=== PATIENT | female | born 1990 | race Caucasian/White ===

== ENCOUNTER 2020-06-02 19:02 | Emergency (ER) | payer MEDICAID ==
[~2020-06-02] VITALS: Ht 160 cm; Wt 44.0 kg
[~2020-06-02 19:02] MED LIST: AMOXICILLIN500 MG OR; AMOXICILLIN500 MG PO; CLEOCIN150 M1 PO; FIORICET PO; LICE TREATMT1 % EX; NAPROSYN500 MG PO; NO MEDS; PERIDEX0.12 % MT; TRIAMIN26 OR; ULTRAM50 M1 PO
[2020-06-02 21:00] VITALS: BP 108/60
== END 2020-06-02 21:00 | disposition home or self-care (01) ==
LOC: ED 19:02
DX: G43.909 Migraine, unspecified, not intractable, without status migrainosus (principal)

== ENCOUNTER 2020-08-23 19:25 | Emergency (ER) | payer MEDICAID ==
[~2020-08-23] VITALS: Ht 160 cm; Wt 45.0 kg
[2020-08-23 21:40] LABS: URINE BILIRUBIN - DIPSTICK NEGATIVE (NEGATIVE); URINE BLOOD DIPSTICK NEGATIVE (NEGATIVE); URINE COLOR YELLOW; URINE GLUCOSE - DIPSTICK NEGATIVE (NEGATIVE); URINE KETONE NEGATIVE (NEGATIVE); URINE LEUK ESTERASE NEGATIVE (NEGATIVE); URINE NITRITE - DIPSTICK NEGATIVE (Negative); URINE PH 7.5 (4.5-8.0); URINE PROTEIN - DIPSTICK NEGATIVE (NEG-TRACE); URINE SPECIFIC GRAVITY 1.015
[2020-08-23] MEDS ORDERED: FLEXERIL5 M1 PO (22:33)
[2020-08-23] MEDS ORDERED: IBUPROFEN600 MG PO (22:33)
[2020-08-23 22:55] VITALS: BP 120/57
== END 2020-08-23 22:55 | disposition home or self-care (01) ==
LOC: ED 19:25
DX: S39.012A Strain of muscle, fascia and tendon of lower back, initial encounter (principal); X50.0XXA Overexertion from strenuous movement or load, initial encounter; Y93.E9 Activity, other interior property and clothing maintenance

== ENCOUNTER 2022-07-09 02:12 | Emergency (ER) | payer MEDICAID ==
[~2022-07-09] VITALS: Ht 160 cm; Wt 50.0 kg
[~2022-07-09 02:12] MED LIST changes: +FLEXERIL5 M1 PO; +IBUPROFEN600 MG PO
[2022-07-09 02:23] VITALS: BP 112/69
[2022-07-09 02:49] LABS: URINE BILIRUBIN - DIPSTICK NEGATIVE (NEGATIVE); URINE BLOOD DIPSTICK LARGE (NEGATIVE); URINE COLOR PINK; URINE GLUCOSE - DIPSTICK NEGATIVE (NEGATIVE); URINE LEUK ESTERASE TRACE (NEGATIVE); URINE PROTEIN - DIPSTICK 100 mg/dL (NEG-TRACE); URINE UROBILINOGEN - DIPSTICK 0.2 E.U./dL (0.2)
[2022-07-09 02:50] LABS: URINE KETONE NEGATIVE (NEGATIVE); URINE NITRITE - DIPSTICK NEGATIVE (Negative)
[2022-07-09 02:53] LABS: URINE RBC >100 RBC/hpf (0-5)
[2022-07-09 02:54] LABS: URINE BACTERIA MODERATE hpf; URINE EPITHELIAL CELLS FEW EPI/hpf (0-FEW); URINE YEAST FEW hpf
[2022-07-09] MEDS ORDERED: ULTRAM50 MG PO (03:06)
[2022-07-09] MEDS ORDERED: KEFLEX500 MG PO (03:06)
[2022-07-09] MEDS ORDERED: PYRIDIUM200 MG PO (03:06)
[2022-07-09 03:09] VITALS: BP 112/69
== END 2022-07-09 03:14 | disposition home or self-care (01) ==
LOC: ED 02:12
PROVIDERS: Emergency Medicine
DX: N39.0 Urinary tract infection, site not specified (principal)

== ENCOUNTER 2024-04-14 14:17 | Emergency (ER) | payer SELFPAY ==
[2024-04-14] VITALS (8 sets, daily range): BP systolic 99–135; BP diastolic 59–81
[~2024-04-14] VITALS: Ht 160 cm; Wt 50.8 kg
[~2024-04-14 14:17] MED LIST changes: +KEFLEX500 MG PO; +PYRIDIUM200 MG PO; +ULTRAM50 MG PO
[2024-04-14] MEDS ORDERED: METOCLOPRAMIDE HCL 10 MG/2 ML SDV IV ONE (15:05)
[2024-04-14] MEDS ORDERED: SODIUM CHLORIDE 0.9% 1,000 ML IV ONE (15:05)
[2024-04-14] MEDS ORDERED: DiphenhydrAMINE HCL 50 MG/ML SDV IV ONE (15:05)
[2024-04-14] MEDS ORDERED: DEXAMETHASONE SOD. PHOSPHATE 10 MG/ML VIAL IV ONE (15:05)
[2024-04-14] MEDS ORDERED: KETOROLAC TROMETHAMINE 30 MG/ML SDV IV ONE (15:05)
[2024-04-14 15:13] LABS: BASO% 0.1 % (0-3); EOS% 0.3 % (0-8); HEMATOCRIT 41.7 % (37.0-47.0); HEMOGLOBIN 14.4 g/dl (12.0-16.0); IMMATURE GRANULOCYTES 0.1 % (0.0-5.0); LYMPH% 19.9 % (15-41); MEAN CELL VOLUME 90.8 fL CALC (80.0-100.0); MEAN CORPUSCULAR HGB 31.4 pG CALC (26.0-32.0); MEAN CORPUSCULAR HGB CONC 34.5 g/dL CAL (32.0-36.0); NEUT# 4.93 thou/uL (2.00-7.15); NEUT% 73.6 % (42-76); RED BLOOD COUNT 4.59 mill/uL (4.20-5.60); RED CELL DISTRI WIDTH 11.6 % (11.5-15.5)
[2024-04-14 15:25] LABS: ALBUMIN 4.7 g/dL (3.2-5.0); BILIRUBIN, TOTAL 0.6 mg/dL (0.02-1.3); CREATININE 0.6 mg/dL (0.5-1.0); POTASSIUM 4.2 mmol/l (3.5-5.1); TOTAL PROTEIN 7.8 g/dL (6.3-8.2)
== END 2024-04-14 16:43 | disposition home or self-care (01) | DRG 103 ==
LOC: ED 14:17
PROVIDERS: Family Medicine
DX: G43.909 Migraine, unspecified, not intractable, without status migrainosus (principal); Z20.822 Contact with and (suspected) exposure to COVID-19